=== PATIENT | male | born 1965 | race Caucasian/White ===

== ENCOUNTER 2017-07-07 07:21 | Inpatient (IN) | payer OTHER, MEDICAID ==
[~2017-07-07] VITALS: Ht 167.6 cm; Wt 64.5 kg
[~2017-07-07 07:21] MED LIST: ASPIR 8181 MG PO; ATORVASTATIN CA40 M1 PO; COZ25 PO; GLU5XL PO; GLUCOTROL5 MG PO; LISINOPRIL20 MG PO; MINOXIDIL2.5 MG PO; PHOSLO667 MG PO; TENORMIN50 MG PO
[2017-07-07 07:27] VITALS: Ht 167.6 cm; Wt 64.5 kg
[2017-07-07 08:58] LABS: BASOPHIL % 0.5 % (0-2); PLATELET COUNT 143 x10^3mcL (130-400); RED CELL DISTRIBUTION WIDTH 12.6 % (11.5-14.5)
[2017-07-07 09:10] LABS: ALBUMIN 3.8 g/dL (3.4-5.0); ALKALINE PHOSPHATASE 70 U/L (46-116); ALT/SGPT 35 U/L (16-63); AST/SGOT 15 U/L (15-37); BILIRUBIN TOTAL 0.4 mg/dL (0.20-1.00); CALCIUM 8.8 mg/dL (8.5-10.1); CARBON DIOXIDE 24.7 mmol/L (21-32); CHLORIDE SERUM 101 mmol/L (98-107); CHOLESTEROL 178 mg/dL (<200); GFR1 6 mL/min; GLUCOSE SERUM 213 mg/dL (74-106); POTASSIUM SERUM 5.3 mmol/L (3.5-5.1); SODIUM SERUM 136 mmol/L (136-145); TOTAL PROTEIN, SERUM 7.3 g/dL (6.4-8.2)
[2017-07-07 09:19] LABS: CREATININE SERUM 9.8 mg/dL (0.7-1.3)
[2017-07-07 11:18] LABS: MAGNESIUM 2.6 mg/dL (1.8-2.4); PHOSPHOROUS 5.2 mg/dL (2.5-4.9)
[2017-07-07 11:27] LABS: FREE T4 1.07 ng/dL (0.76-1.46); FREE THYROXINE INDEX 2.1 ug/dL (1.4-4.5); T4(THYROXINE) 6.8 ug/dL (4.7-13.3)
[2017-07-07 11:29] LABS: T3 TOTAL 0.72 ng/mL
[2017-07-07 12:11] LABS: microscopic required? YES; urine erythrocyte TRACE (NEGATIVE)
[2017-07-07 12:20] VITALS: BP 200/91
[2017-07-07 12:25] VITALS: BP 182/82
[2017-07-07 12:41] VITALS: BP 201/96
[2017-07-07 13:50] VITALS: BP 161/77
[2017-07-07 18:14] VITALS: BP 178/85
[2017-07-07 20:34] VITALS: BP 155/47
[2017-07-08] VITALS (10 sets, daily range): BP systolic 134–188; BP diastolic 52–88
[2017-07-08 06:17] LABS: BASOPHIL % 0.3 % (0-2); PLATELET COUNT 139 x10^3mcL (130-400); RED CELL DISTRIBUTION WIDTH 13.1 % (11.5-14.5)
[2017-07-08 06:23] LABS: CALCIUM 8.9 mg/dL (8.5-10.1); CARBON DIOXIDE 22.5 mmol/L (21-32); MAGNESIUM 2.6 mg/dL (1.8-2.4); PHOSPHOROUS 5.3 mg/dL (2.5-4.9)
[2017-07-08 06:27] LABS: CREATININE SERUM 11.3 mg/dL (0.7-1.3)
[2017-07-09] VITALS (7 sets, daily range): BP systolic 126–164; BP diastolic 45–81
[2017-07-09 06:22] LABS: BASOPHIL % 0.1 % (0-2); PLATELET COUNT 171 x10^3mcL (130-400)
[2017-07-09 06:42] LABS: CALCIUM 8.9 mg/dL (8.5-10.1); CARBON DIOXIDE 27.9 mmol/L (21-32); POTASSIUM SERUM 4.3 mmol/L (3.5-5.1)
[2017-07-09 07:04] LABS: CREATININE SERUM 7.2 mg/dL (0.7-1.3)
[2017-07-10 04:51] VITALS: BP 161/59
[2017-07-10 06:28] LABS: BASOPHIL % 0.4 % (0-2); PLATELET COUNT 154 x10^3mcL (130-400); RED CELL DISTRIBUTION WIDTH 13.2 % (11.5-14.5)
[2017-07-10 07:05] LABS: CALCIUM 8.6 mg/dL (8.5-10.1); CARBON DIOXIDE 29.3 mmol/L (21-32); POTASSIUM SERUM 4.4 mmol/L (3.5-5.1)
[2017-07-10 07:09] LABS: CREATININE SERUM 9.3 mg/dL (0.7-1.3)
[2017-07-10 14:36] VITALS: BP 166/77
[2017-07-10 17:21] VITALS: BP 148/70
[2017-07-10 22:25] VITALS: BP 153/71
[2017-07-11 06:39] VITALS: BP 183/84
[2017-07-11 06:48] LABS: BASOPHIL % 0.4 % (0-2); PLATELET COUNT 155 x10^3mcL (130-400); RED CELL DISTRIBUTION WIDTH 13.2 % (11.5-14.5)
[2017-07-11 07:07] LABS: CALCIUM 8.9 mg/dL (8.5-10.1); CARBON DIOXIDE 26.8 mmol/L (21-32); PHOSPHOROUS 5.3 mg/dL (2.5-4.9); POTASSIUM SERUM 4.8 mmol/L (3.5-5.1)
[2017-07-11 07:21] LABS: CREATININE SERUM 7.1 mg/dL (0.7-1.3)
[2017-07-11 08:16] VITALS: BP 166/71
[2017-07-11] MEDS ORDERED: ZES20 PO (11:29)
[2017-07-11] MEDS ORDERED: ECO325 PO (11:29)
[2017-07-11] MEDS ORDERED: ATORVASTATIN CA40 M1 PO (11:29)
[2017-07-11 12:59] VITALS: BP 166/71
[2017-07-11 13:27] VITALS: BP 167/82
[2017-07-11 13:36] VITALS: BP 167/82
== END 2017-07-11 14:02 | disposition home health service (06) | DRG 291 ==
LOC: ED 07:21 → DU 09:36 → MU 09:36 → DU 10:55 → MU 07-09 17:35
PROVIDERS: Family Medicine; Specialist
PROC: 5A1D70Z Performance of Urinary Filtration, Intermittent, Less than 6 Hours Per Day (ICD-10-PCS; principal; 2017-07-08)
PROC: 5A1D70Z Performance of Urinary Filtration, Intermittent, Less than 6 Hours Per Day (ICD-10-PCS; 2017-07-11)
DX: I13.2 Hypertensive heart and chronic kidney disease with heart failure and with stage 5 chronic kidney disease, or end stage renal disease (principal); N18.6 End stage renal disease; I50.43 Acute on chronic combined systolic (congestive) and diastolic (congestive) heart failure; N17.0 Acute kidney failure with tubular necrosis; I16.9 Hypertensive crisis, unspecified; G81.91 Hemiplegia, unspecified affecting right dominant side; G90.8 Other disorders of autonomic nervous system; E11.22 Type 2 diabetes mellitus with diabetic chronic kidney disease; E11.65 Type 2 diabetes mellitus with hyperglycemia; E02 Subclinical iodine-deficiency hypothyroidism; D64.9 Anemia, unspecified; E87.5 Hyperkalemia; E83.39 Other disorders of phosphorus metabolism; E83.41 Hypermagnesemia
CPT/HCPCS: 83880; 84439; 97110-GP; 97116-GP; 97530-GP; 97535-GP; G0480; J0360; J2405; J3490; J7030; Q0092

== ENCOUNTER 2017-09-23 02:04 | Inpatient (IN) | payer OTHER, MEDICAID ==
[~2017-09-23] VITALS: Ht 167.6 cm; Wt 63.7 kg
[~2017-09-23 02:04] MED LIST changes: +ECO325 PO; +ZES20 PO
[2017-09-23 02:07] VITALS: Ht 167.6 cm; Wt 63.7 kg
[2017-09-23 02:41] LABS: UA SPECIFIC GRAVITY 1.015 (1.005-1.035); microscopic required? YES; urine erythrocyte TRACE (NEGATIVE)
[2017-09-23 02:50] LABS: BASOPHIL % 0.5 % (0-2); PLATELET COUNT 235 x10^3mcL (130-400); RED CELL DISTRIBUTION WIDTH 14.5 % (11.5-14.5)
[2017-09-23 03:08] LABS: CK-MB 2.4 ng/mL (0-3.6)
[2017-09-23 03:20] LABS: ALBUMIN 4.6 g/dL (3.4-5.0); BILIRUBIN TOTAL 0.46 mg/dL (0.20-1.00); CARBON DIOXIDE 22.5 mmol/L (21-32)
[2017-09-23 03:35] LABS: TOTAL PROTEIN, SERUM 8.6 g/dL (6.4-8.2)
[2017-09-23 03:36] LABS: CREATININE SERUM 8.5 mg/dL (0.7-1.3); POTASSIUM SERUM 6.2 mmol/L (3.5-5.1)
[2017-09-23] MEDS ORDERED: NORVASC2.5 MG PO (03:59)
[2017-09-23 04:24] LABS: CHOLESTEROL/HDL RATIO 3.8; MAGNESIUM 2.7 mg/dL (1.8-2.4); PHOSPHOROUS 4.3 mg/dL (2.5-4.9)
[2017-09-23 04:30] LABS: T3 TOTAL 0.76 ng/mL
[2017-09-23 04:34] LABS: FREE T4 1.13 ng/dL (0.76-1.46); FREE THYROXINE INDEX 2.6 ug/dL (1.4-4.5)
[2017-09-23 04:45] VITALS: BP 189/83
[2017-09-23 06:36] VITALS: BP 182/81
[2017-09-23 08:26] LABS: BASOPHIL % 0.4 % (0-2); PLATELET COUNT 220 x10^3mcL (130-400); RED CELL DISTRIBUTION WIDTH 14.3 % (11.5-14.5)
[2017-09-23 08:38] LABS: CALCIUM 11.2 mg/dL (8.5-10.1); CARBON DIOXIDE 23.2 mmol/L (21-32); POTASSIUM SERUM 5.1 mmol/L (3.5-5.1)
[2017-09-23 08:40] LABS: CREATININE SERUM 9.1 mg/dL (0.7-1.3)
[2017-09-23 08:50] VITALS: BP 126/75
[2017-09-23 09:25] LABS: AMPHETAMINE QUAL UR NONE DETECTED (See below)
[2017-09-23 14:05] VITALS: BP 157/72
== END 2017-09-23 14:23 | disposition left against medical advice (07) | DRG 205 ==
LOC: ED 02:04 → DU 03:44
PROVIDERS: Emergency Medicine; Family Medicine
DX: M94.0 Chondrocostal junction syndrome [Tietze] (principal); N18.6 End stage renal disease; N17.0 Acute kidney failure with tubular necrosis; I50.43 Acute on chronic combined systolic (congestive) and diastolic (congestive) heart failure; I13.2 Hypertensive heart and chronic kidney disease with heart failure and with stage 5 chronic kidney disease, or end stage renal disease; I16.9 Hypertensive crisis, unspecified; R31.9 Hematuria, unspecified; R80.9 Proteinuria, unspecified; E11.22 Type 2 diabetes mellitus with diabetic chronic kidney disease; E11.51 Type 2 diabetes mellitus with diabetic peripheral angiopathy without gangrene; E87.5 Hyperkalemia; E83.52 Hypercalcemia; E83.41 Hypermagnesemia; E03.9 Hypothyroidism, unspecified; E78.5 Hyperlipidemia, unspecified; Z68.22 Body mass index [BMI] 22.0-22.9, adult; Z86.73 Personal history of transient ischemic attack (TIA), and cerebral infarction without residual deficits; Z99.2 Dependence on renal dialysis; Z79.82 Long term (current) use of aspirin; Z79.84 Long term (current) use of oral hypoglycemic drugs
CPT/HCPCS: 36600; 83880; 84439; J0610; J1815; J1940; J3490; Q0092

== ENCOUNTER 2018-10-31 09:53 | Emergency (ER) | payer OTHER, MEDICAID ==
[~2018-10-31] VITALS: Ht 170.2 cm; Wt 66.2 kg
[~2018-10-31 09:53] MED LIST changes: +NORVASC2.5 MG PO
[2018-10-31 09:55] VITALS: Ht 170.2 cm; Wt 66.2 kg
[2018-10-31 10:52] LABS: PLATELET COUNT 176 x10^3mcL (130-400); RED CELL DISTRIBUTION WIDTH 13.8 % (11.5-14.5)
[2018-10-31 11:11] LABS: ALBUMIN 3.6 g/dL (3.4-5.0); ALKALINE PHOSPHATASE 50 U/L (46-116); ALT/SGPT 14 U/L (16-63); AST/SGOT 12 U/L (15-37); BILIRUBIN TOTAL 0.4 mg/dL (0.20-1.00); CALCIUM 8.1 mg/dL (8.5-10.1); CARBON DIOXIDE 33.4 mmol/L (21-32); CHLORIDE SERUM 95 mmol/L (98-107); GLUCOSE SERUM 191 mg/dL (74-106); POTASSIUM SERUM 4.9 mmol/L (3.5-5.1); SODIUM SERUM 136 mmol/L (136-145); TOTAL PROTEIN, SERUM 7.3 g/dL (6.4-8.2)
[2018-10-31 11:16] LABS: CK-MB 1.5 ng/mL (0-3.6)
[2018-10-31 11:20] LABS: GFR1 12 mL/min
[2018-10-31 11:21] LABS: CREATININE SERUM 5.3 mg/dL (0.7-1.3)
[2018-10-31 13:09] VITALS: BP 166/79
== END 2018-10-31 13:33 | disposition home or self-care (01) ==
LOC: ED 09:53
PROVIDERS: Emergency Medicine
DX: R42 Dizziness and giddiness (principal); R20.0 Anesthesia of skin; E11.22 Type 2 diabetes mellitus with diabetic chronic kidney disease; I12.0 Hypertensive chronic kidney disease with stage 5 chronic kidney disease or end stage renal disease; N18.6 End stage renal disease; Z99.2 Dependence on renal dialysis
CPT/HCPCS: G0480; J2405; J8597; Q0092